=== PATIENT | female | born 1950 | race Caucasian/White ===

== ENCOUNTER 2016-12-22 18:07 | Inpatient (IN) | payer MEDICARE ==
[~2016-12-22] VITALS: Ht 175.3 cm; Wt 88.0 kg
[~2016-12-22 18:07] MED LIST: ALPH600C PO; ASPI81CH CHEW; GLUC500C36 PO; LEVO.125 PO; LISI40TA PO; NEUR600T PO; ONCETAB7; PAME75CA PO; POTA-245 PO; STOO100C; SUBO8MIS SL; ZOLO100T PO
[2016-12-22 18:12] VITALS: BP 182/88; PULSE 89; RESP 18; TEMP 98.4; O2SAT 96
--- NOTE | 2016-12-22 18:16 | PD ---
Physical Exam Time Seen by Provider: 18:15 Narrative 65 y/o female here with L foor redness for 2 weeks. Seen by pocket and pulley machine operator Dr. Huff today, sent here w/ dx of abscess/cellulitis to be admitted w/ consult to Dr. Catherine. Vital signs reviewed. Seen at triage desk. Awaiting bed placement. Data Data Last Documented VS Vital Signs Date Time Temp Pulse Resp B/P Pulse Ox O2 Delivery O2 Flow Rate FiO2 12/22/16 18:12 98.4 89 18 182/88 96 [facility] Medical Record Reviewed: Yes Supervised Visit with LORIN: No Jamil Acosta Dec 22, 2016 18:16
[2016-12-22] MEDS ORDERED: CLINDAMYCIN INJ 600 MG in SODIUM CHLORIDE 0.9% INJ 100 ML IV ONE (19:15)
[2016-12-22 19:46] LABS: AUTOMATED NEUTROPHIL # 5.4 TH/MM3 (1.8-7.7); BASOPHIL % 0.6 % (0.0-2.0); EOSINOPHIL # 0.1 TH/MM3 (0-0.4); EOSINOPHIL % 1.6 % (0.0-4.0); HEMATOCRIT 41.1 % (35.0-46.0); HEMO FLAGS DIFF FINAL; LYMPH % 16.9 % (9.0-44.0); LYMPHOCYTE # 1.3 TH/MM3 (1.0-4.8); MEAN CORPUSCULAR HEMOGLOBIN 28.6 PG (27.0-34.0); MEAN CORPUSCULAR HGB CONC 33.2 % (32.0-36.0); MONO % 8.7 % (0.0-8.0); NEUT % 72.2 % (16.0-70.0); PLATELET COUNT 260 TH/MM3 (150-450); RED BLOOD COUNT 4.78 MIL/MM3 (4.00-5.30); RED CELL DISTRIBUTION WIDTH 13.9 % (11.6-17.2); WHITE BLOOD COUNT 7.5 TH/MM3 (4.0-11.0)
--- NOTE | 2016-12-22 19:48 | RADRPT ---
EXAM DATE/TIME: 12/22/2016 19:28 [place] COMPARISON: No previous studies available for comparison. INDICATIONS : Large wound on sole of foot. MEDICAL HISTORY : Chronic neuropathy. Charcot foot. SURGICAL HISTORY : Bunionectomy. Hammertoe surgery. Fracture repair, first and second digits. ENCOUNTER: Initial ACUITY: 2 weeks PAIN SCORE: 0/10 LOCATION: Left foot. FINDINGS: AP, lateral and oblique views of the left foot were obtained and demonstrate postoperative changes in volving the second digit. The patient is status post fusion of the proximal and middle phalanges. The re are postoperative changes involving the second metatarsal head with widening of the joint space. O steoarthritic change is present greatest involving the metatarsal tarsal joints and intertarsal joint s with sclerosis and joint space narrowing. There is deformity and apparent fragmentation in the mid foot region. There is diffuse soft tissue prominence. CONCLUSION: 1. Degenerative change, deformity and apparent fragmentation in the mid foot region which could indic ate a Charcot joint. This also could be secondary to remote trauma and degenerative change. 2. Surgical changes. 3. Diffuse soft tissue prominence. Abdirashid Jimenez MD on December 22, 2016 at 19:43 Board Certified Radiologist. This report was verified electronically.
[2016-12-22 19:51] VITALS: BP 158/75; PULSE 62; RESP 20; TEMP 98.2; O2SAT 95
[2016-12-22 19:58] LABS: APTT (PATIENT) 28.9 SEC (24.3-30.1); PROTHROMBIN TIME - PATIENT 10.5 SEC (9.8-11.6)
[2016-12-22 19:59] LABS: BICARBONATE 25.6 MEQ/L (21.0-32.0); MAGNESIUM 1.9 MG/DL (1.5-2.5)
[2016-12-22] MEDS ORDERED: PIPERACIL-TAZO 3.375 GM PREMIX 50 ML IV ONE (20:00)
--- NOTE | 2016-12-22 20:07 | HHI.HP ---
[facility] Idris Finn MD Admission Diagnosis Left foot cellulitis Diagnoses: Chief Complaint: left foot wound/infection Travel History International Travel<30 Days: No Contact w/Intl Traveler <30 Da: No Traveled to Known Affected Are: No History of Present Illness Written by Nikki Cho, acting as scribe for Dr. Conde on 12/22/16 at 20: 07. Mrs. Babcock is reporting that last night, she noted a wound on middle of plantar aspect of right foot - it is not painful as she has idiopathic neuropathy - she saw her tools developer today and is s/p I&D of wound - sent to ED by Dr. Huff, tools developer. She says she hasn't been checking her feet over the past few weeks since she got a new dog and has been too busy. She does not recall any injury or trauma to the area. Denies fever, chills, n/v/d, difficulty breathing, cough, or chest pain/ discomfort. The patient has a history of right BKA due to osteomyelitis. Review of Systems Except as stated in HPI: all other systems reviewed are Neg Past Family Social History Past Medical History Hypothyroid x 38 years Hypertension Neuropathy - diopathisc Past Surgical History cholecystectomy left foot - bunionectomy, hammer toe repair L4-5 laminectomy left shoulder repair Right BKA - 3 years ago 2013 due to osteomyelitis . Reported Medications Reported Meds & Active Scripts Active Reported Glucosamine & Chondroitin Cap (Glucosa Sierra 2Kcl/Chondroitin Sierra) 1 Each Capsule 600 Tab PO BID Once Daily (Multivitamin) 1 Each Tablet Stool Softener (Docusate Sodium) 100 Mg Cap Alpha Lipoic Acid 600 Mg Cap 600 Mg PO BID Aspirin 81 Mg Chew 81 Mg CHEW DAILY Klor-Con M20 (Potassium Chloride Microencaps) 20 Meq Tab 20 Meq PO DAILY Zoloft (Sertraline HCl) 100 Mg Tab 100 Mg PO DAILY Lisinopril 40 Mg Tab 40 Mg PO DAILY Synthroid (Levothyroxine Sodium) 125 Mcg Tab 125 Mcg PO DAILY Suboxone Sublingual Film (Buprenorphine-Naloxone Sublingual Film) 8-2 Mg Film 1 Film SL Unique ID number required: Pamelor (Nortriptyline HCl) 75 Mg Cap 75 Mg PO HS Neurontin (Gabapentin) 600 Mg Tab 600 Mg PO QID Allergies: Coded Allergies: Cephalosporins (Verified Allergy, Severe, Rash, 12/22/16) Vancomycin (Verified Allergy, Severe, Rash, 12/22/16) Active Ordered Medications Current Medications Clindamycin Phosphate 600 mg/ Sodium Chloride 104 ml @ 208 mls/hr ONCE ONCE IV ; Start 12/22/16 at 19:15; Stop 12/22/16 at 19:58; Status DC Piperacillin Sod/ Tazobactam Sod (Zosyn 3.375 Gm Premix) 50 ml @ 100 mls/hr ONCE ONCE IV ; Start 12/22/16 at 20:00; Stop 12/22/16 at 20:29 . Family History denies any significant family history . Social History Tobacco: denies Alcohol: denies Illicit Drugs: denies . Physical Exam Vital Signs Vital Signs Date Time Temp Pulse Resp B/P Pulse Ox O2 Delivery O2 Flow Rate FiO2 12/22/16 19:46 18 12/22/16 18:12 98.4 89 18 182/88 96 Physical Exam GENERAL: This is a well-nourished, well-developed patient, in no apparent distress. SKIN: No rashes, ecchymoses or lesions. Cool and dry. Left LE edematous - darkly discolored - also with red discoloration from mid bloom/calf to ankle - dressing to middle foot with bloody drainage noted HEAD: Atraumatic. Normocephalic. EYES: No scleral icterus. No injection or drainage. ENT: Nose without bleeding, purulent drainage. NECK: Trachea midline. No JVD or lymphadenopathy. CARDIOVASCULAR: Regular rate and rhythm without gallops or rubs. Soft systolic heart murmur 2/6 second right IC space RESPIRATORY: Clear to auscultation. Breath sounds equal bilaterally. No wheezes , rales, or rhonchi. GASTROINTESTINAL: Abdomen obese, soft, non-tender, nondistended. No guarding. MUSCULOSKELETAL: Extremities without clubbing, cyanosis, or edema. No calf tenderness. Left LE edematous - darkly discolored - also with red discoloration from mid bloom/calf to ankle. right BKA. NEUROLOGICAL: Awake and alert. Motor and sensory grossly within normal limits. Normal speech. Laboratory Laboratory Tests Test 12/22/16 19:05 White Blood Count 7.5 Red Blood Count 4.78 Hemoglobin 13.7 Hematocrit 41.1 Mean Corpuscular Volume 86.0 Mean Corpuscular Hemoglobin 28.6 Mean Corpuscular Hemoglobin 33.2 Concent Red Cell Distribution Width 13.9 Platelet Count 260 Mean Platelet Volume 6.2 Neutrophils (%) (Auto) 72.2 Lymphocytes (%) (Auto) 16.9 Monocytes (%) (Auto) 8.7 Eosinophils (%) (Auto) 1.6 Basophils (%) (Auto) 0.6 Neutrophils # (Auto) 5.4 Lymphocytes # (Auto) 1.3 Monocytes # (Auto) 0.7 Eosinophils # (Auto) 0.1 Basophils # (Auto) 0.0 CBC Comment DIFF FINAL Differential Comment Prothrombin Time 10.5 Prothromb Time International 1.0 Ratio Activated Partial 28.9 Thromboplast Time Sodium Level 130 Potassium Level 4.0 Chloride Level 96 Carbon Dioxide Level 25.6 Anion Gap 8 Blood Urea Nitrogen 17 Creatinine 0.95 Estimat Glomerular Filtration 59 Rate Random Glucose 167 Calcium Level 8.6 Magnesium Level 1.9 C-Reactive Protein 1.10 Date/Time Procedure Status Source Growth 12/22/16 19:15 Aerobic Blood Culture Received Blood Peripheral Pending 12/22/16 19:15 Anaerobic Blood Culture Received Blood Peripheral Pending Result Diagram: 12/22/16 1905 12/22/16 1905 Imaging Last Impressions Foot X-Ray 12/22/16 0000 Signed Impressions: Service Date/Time: Thursday, December 22, 2016 19:28 - CONCLUSION: 1. Degenerative change, deformity and apparent fragmentation in the mid foot region which could indicate a Charcot joint. This also could be secondary to remote trauma and degenerative change. 2. Surgical changes. 3. Diffuse soft tissue prominence. Abdirashid Jimenez MD . Assessment and Plan Assessment and Plan Mrs. Babcock is a 65 y/o female with idiopathic peripheral neuropathy and right BKA who is here for treatment of left foot cellulitis: Left foot cellulitis - referred to ER by outpatient tools developer - C-reactive protein elevated at 1.10 - ID consultation - left foot MRI - r/o osteomyelitis - antibiotics: Zosyn IV 4.5 gram q8h - linezolid/Zyvox 600 mg q12h IV Hyperglycemia - check HgA1C - suspect diabetes - Accu-Cheks before meals and at bedtime with low-dose NovoLog sliding scale coverage - Hypoglycemia protocol - Monitor trends in blood glucose levels and adjust treatments as needed Hyponatremia - Initial sodium 130 - Normal saline at 100 cc per hour - Recheck BMP in a.m. and follow results - Replace sodium as necessary Hypertension, poorly controlled - Clonidine 0.1 mg by mouth every 6 hours when necessary systolic blood pressure greater than 160 - continue home antihypertensive medications - Follow trends in blood pressure and adjust treatments accordingly Depression, controlled - Continue home sertraline and Pamelor Idiopathic neuropathy - Continue home gabapentin Hypothyroidism - Well-controlled for 30 years - continue home Synthroid DVT prophylaxis - Heparin 5000 units subcutaneous every 8 hours This note was transcribed by gladis Cho. I, Dr. Conner Smith personally performed the history, physical exam, and medical decision making; and confirmed the accuracy of the information in the transcribed note. Authenticated by Dr. Conner Smith on 12/22/16 at 22:30. Discussed Condition With ER physician, patient, patient's , and RN Physician Certification 2 Midnight Certification Type: Admission for Inpatient Services Order for Inpatient Services The services are ordered in accordance with Medicare regulations or non- Medicare payer requirements, as applicable. In the case of services not specified as inpatient-only, they are appropriately provided as inpatient services in accordance with the 2-midnight benchmark. Estimated LOS (days): 3 days is the estimated time the patient will need to remain in the hospital, assuming treatment plan goals are met and no additional complications. Post-Hospital Plan: Home Nikki Cho Dec 22, 2016 20:07 Conner Moe MD Dec 22, 2016 22:30
--- NOTE | 2016-12-22 20:21 | PD ---
HPI Chief Complaint: Edema Time Seen by Provider: 20:12 Travel History International Travel<30 days: No Contact w/Intl Traveler<30days: No Traveled to known affect area: No History of Present Illness HPI 65 yo female here for evaluation of possible infection to the right lower leg. Patient was seen by Dr. choi that the executive associate today for evaluation of this and was sent here for admission for IV antibiotics and consultation to Dr. Bhavesh Pimentel and likely surgery. Patient has a history of significant infection to her right leg that caused her to lost her leg. Patient has no history of diabetes or immunosuppression. She does have multiple allergies to antibiotics. She denies any chest pain or shortness of breath. No fevers chills or sweats. No pain. Per patient is all started about a week ago but she did not notice the wound on the plantar aspect of her foot until 3 days ago. She denies any fevers chills or sweats. Other medical issues. She has chronic neuropathy to the legs of unclear etiology. PFSH Past Medical History Hx Anticoagulant Therapy: Yes (ASA) Anemia: Yes Cardiovascular Problems: Yes (HTN) High Cholesterol: Yes Diminished Hearing: No Hypertension: Yes Thyroid Disease: Yes Past Surgical History Cholecystectomy: Yes Tonsillectomy: Yes Other Surgery: Yes (right below the knee amputation) Social History Alcohol Use: No Tobacco Use: No Substance Use: No Allergies-Medications (Allergen,Severity, Reaction): Coded Allergies: Cephalosporins (Verified Allergy, Severe, Rash, 12/22/16) Vancomycin (Verified Allergy, Severe, Rash, 12/22/16) Reported Meds & Prescriptions Reported Meds & Active Scripts Active Reported Glucosamine & Chondroitin Cap (Glucosa Sierra 2Kcl/Chondroitin Sierra) 1 Each Capsule 600 Tab PO BID Once Daily (Multivitamin) 1 Each Tablet Stool Softener (Docusate Sodium) 100 Mg Cap Alpha Lipoic Acid 600 Mg Cap 600 Mg PO BID Aspirin 81 Mg Chew 81 Mg CHEW DAILY Klor-Con M20 (Potassium Chloride Microencaps) 20 Meq Tab 20 Meq PO DAILY Zoloft (Sertraline HCl) 100 Mg Tab 100 Mg PO DAILY Lisinopril 40 Mg Tab 40 Mg PO DAILY Synthroid (Levothyroxine Sodium) 125 Mcg Tab 125 Mcg PO DAILY Suboxone Sublingual Film (Buprenorphine-Naloxone Sublingual Film) 8-2 Mg Film 1 Film SL Unique ID number required: Pamelor (Nortriptyline HCl) 75 Mg Cap 75 Mg PO HS Neurontin (Gabapentin) 600 Mg Tab 600 Mg PO QID Review of Systems Except as stated in HPI: all other systems reviewed are Neg Physical Exam Narrative GENERAL: SKIN: Warm and dry. HEAD: Atraumatic. Normocephalic. EYES: Pupils equal and round. No scleral icterus. No injection or drainage. ENT: No nasal bleeding or discharge. Mucous membranes pink and moist. NECK: Trachea midline. No JVD. CARDIOVASCULAR: Regular rate and rhythm. RESPIRATORY: No accessory muscle use. Clear to auscultation. Breath sounds equal bilaterally. GASTROINTESTINAL: Abdomen soft, non-tender, nondistended. Hepatic and splenic margins not palpable. MUSCULOSKELETAL: Extremities without clubbing, cyanosis, or edema. No obvious deformities. Full ROM of the left lower leg. has below the right knee amputation. has an area of erythema and open area with drainage on the plantar aspect. 2+ pitting edema. erythema on the lower leg noted. warm to touch. NEUROLOGICAL: Awake and alert. No obvious cranial nerve deficits. Motor grossly within normal limits. Five out of 5 muscle strength in the arms and legs. Normal speech. PSYCHIATRIC: Appropriate mood and affect; insight and judgment normal. Data Data Last Documented VS Vital Signs Date Time Temp Pulse Resp B/P Pulse Ox O2 Delivery O2 Flow Rate FiO2 12/22/16 19:46 18 12/22/16 18:12 98.4 89 182/88 96 Orders Complete Blood Count With Diff (12/22/16 19:03) Basic Metabolic Panel (Bmp) (12/22/16 19:03) Prothrombin Time / Inr (Pt) (12/22/16 19:03) Act Partial Throm Time (Ptt) (12/22/16 19:03) Blood Culture (12/22/16 19:03) C-Reactive Protein (Crp) (12/22/16 19:03) Magnesium (Mg) (12/22/16 19:03) Iv Access Insert/Monitor (12/22/16 19:03) Clindamycin Inj (Cleocin Inj) (12/22/16 19:15) Foot, Complete (Bni3vxw) (12/22/16 ) Piperacil-Tazo 3.375 Gm Premix (Zosyn 3. (12/22/16 20:00) Admit Order (Ed Use Only) (12/22/16 19:58) Consult Podiatry (12/22/16 ) Labs Laboratory Tests Test 12/22/16 19:05 White Blood Count 7.5 TH/MM3 Red Blood Count 4.78 MIL/MM3 Hemoglobin 13.7 GM/DL Hematocrit 41.1 % Mean Corpuscular Volume 86.0 FL Mean Corpuscular Hemoglobin 28.6 PG Mean Corpuscular Hemoglobin 33.2 % Concent Red Cell Distribution Width 13.9 % Platelet Count 260 TH/MM3 Mean Platelet Volume 6.2 FL Neutrophils (%) (Auto) 72.2 % Lymphocytes (%) (Auto) 16.9 % Monocytes (%) (Auto) 8.7 % Eosinophils (%) (Auto) 1.6 % Basophils (%) (Auto) 0.6 % Neutrophils # (Auto) 5.4 TH/MM3 Lymphocytes # (Auto) 1.3 TH/MM3 Monocytes # (Auto) 0.7 TH/MM3 Eosinophils # (Auto) 0.1 TH/MM3 Basophils # (Auto) 0.0 TH/MM3 CBC Comment DIFF FINAL Differential Comment Prothrombin Time 10.5 SEC Prothromb Time International 1.0 RATIO Ratio Activated Partial 28.9 SEC Thromboplast Time Sodium Level 130 MEQ/L Potassium Level 4.0 MEQ/L Chloride Level 96 MEQ/L Carbon Dioxide Level 25.6 MEQ/L Anion Gap 8 MEQ/L Blood Urea Nitrogen 17 MG/DL Creatinine 0.95 MG/DL Estimat Glomerular Filtration 59 ML/MIN Rate Random Glucose 167 MG/DL Calcium Level 8.6 MG/DL Magnesium Level 1.9 MG/DL C-Reactive Protein 1.10 MG/DL MDM Medical Decision Making Medical Screen Exam Complete: Yes Emergency Medical Condition: Yes Medical Record Reviewed: Yes Interpretation(s) CBC & BMP Diagram 12/22/16 19:05 CRP elevated Last Impressions Foot X-Ray 12/22/16 0000 Signed Impressions: Service Date/Time: Thursday, December 22, 2016 19:28 - CONCLUSION: 1. Degenerative change, deformity and apparent fragmentation in the mid foot region which could indicate a Charcot joint. This also could be secondary to remote trauma and degenerative change. 2. Surgical changes. 3. Diffuse soft tissue prominence. Abdirashid Jimenez MD Differential Diagnosis Foot infection versus cellulitis versus abscess versus osteomyelitis Narrative Course 65-year-old female that presents to the ED for evaluation of left foot infection. Patient was properly examined and was found to have signs and symptoms consistent with infection. Patient already seen by executive associate who wanted her admitted. Labs were ordered. X-ray was ordered. Patient was turned IV Zosyn which she states she can take. She states that she is also allergic to clindamycin and cannot take it because it upsets her stomach too bad. Patient agrees with plan. Case discussed with Dr. Conde who agrees to admission. Consult was placed to Dr. Tapia. Diagnosis Primary Impression: Foot infection Additional Impression: Foot abscess, left Admitting Information Admitting Physician Requests: Admit Schuyler Sloan Dec 22, 2016 20:21
[2016-12-22] MEDS: INSULIN ASPART SUPPLEMENTAL SCALE SQ SCH (21:00)
[2016-12-22] MEDS ORDERED: LISINOPRIL 20 MG TAB PO SCH (21:00)
[2016-12-22] MEDS: DOCUSATE SODIUM 50 MG/SENNA 8.6 MG TAB PO SCH (21:00)
[2016-12-22] MEDS ORDERED: SENNOSIDES 8.6 MG TAB PO PRN (21:00)
[2016-12-22] MEDS ORDERED: DEXTROSE 50% IN WATER 50 ML VIAL(D50) IV PRN (21:00)
[2016-12-22] MEDS ORDERED: LACTULOSE SYRUP 20 GM/30 ML CUP PO PRN (21:00)
[2016-12-22] MEDS ORDERED: SODIUM CHLORIDE 0.9% FLUSH 10 ML FLUSH IV FLUSH PRN (21:00)
[2016-12-22] MEDS ORDERED: BISACODYL 10 MG SUPP RECTAL PRN (21:00)
[2016-12-22] MEDS ORDERED: ONDANSETRON HCL 4 MG/2 ML VIAL IVP PRN (21:00)
[2016-12-22] MEDS: SODIUM CHLORIDE 0.9% FLUSH 10 ML FLUSH IV FLUSH SCH (21:00)
[2016-12-22] MEDS ORDERED: ALPHA LIPOIC ACID 600 MG PO SCH (21:00)
[2016-12-22] MEDS ORDERED: PIPERACIL-TAZO 4.5 GM PREMIX 100 ML IV SCH (21:00)
[2016-12-22] MEDS ORDERED: MAGNESIUM HYDROXIDE SUSP 30 ML CUP PO PRN (21:00)
[2016-12-22] MEDS ORDERED: ACETAMINOPHEN 325 MG TAB PO PRN (21:00)
[2016-12-22] MEDS ORDERED: GLUCAGON 1 MG/ML VIAL OTHER PRN (21:00)
[2016-12-22] MEDS: GABAPENTIN 300 MG CAP PO SCH (21:49)
[2016-12-22] MEDS: SODIUM CHLOR 0.9% 1000 ML INJ 1,000 ML IV SCH (21:49)
[2016-12-22] MEDS: HEPARIN SODIUM - SQ 10,000 UNITS/ML VIAL SQ SCH (21:50)
[2016-12-22] MEDS: LINEZOLID 600 MG PREMIX 300 ML IV SCH (23:12)
[2016-12-22] MEDS: NORTRIPTYLINE HCL 25 MG CAP PO SCH (23:27)
[2016-12-23] VITALS (7 sets, daily range): BP systolic 146–154; BP diastolic 72–78; PULSE 60–73; RESP 18–20; TEMP 97.5–98.2; O2SAT 95–97
[2016-12-23 04:55] LABS: AUTOMATED NEUTROPHIL # 4.9 TH/MM3 (1.8-7.7); BASOPHIL # 0.1 TH/MM3 (0-0.2); BASOPHIL % 0.8 % (0.0-2.0); EOSINOPHIL # 0.2 TH/MM3 (0-0.4); EOSINOPHIL % 2.2 % (0.0-4.0); HEMATOCRIT 38.4 % (35.0-46.0); HEMO FLAGS DIFF FINAL; LYMPH % 19.2 % (9.0-44.0); LYMPHOCYTE # 1.4 TH/MM3 (1.0-4.8); MEAN CELL VOLUME 85.7 FL (80.0-100.0); MEAN CORPUSCULAR HEMOGLOBIN 29.2 PG (27.0-34.0); MONO % 8.9 % (0.0-8.0); NEUT % 68.9 % (16.0-70.0); PLATELET COUNT 255 TH/MM3 (150-450); RED BLOOD COUNT 4.48 MIL/MM3 (4.00-5.30); RED CELL DISTRIBUTION WIDTH 13.7 % (11.6-17.2); WHITE BLOOD COUNT 7.1 TH/MM3 (4.0-11.0)
[2016-12-23] MEDS: PIPERACIL-TAZO 4.5 GM PREMIX 100 ML IV SCH ×3 (04:59→22:07)
[2016-12-23] MEDS: LEVOTHYROXINE SODIUM 125 MCG TAB PO SCH (05:00)
[2016-12-23] MEDS: HEPARIN SODIUM - SQ 10,000 UNITS/ML VIAL SQ SCH ×3 (05:00→22:06)
[2016-12-23 05:15] LABS: ANION GAP 6 MEQ/L (5-15); AST (GOT) 20 U/L (15-37); BICARBONATE 27.8 MEQ/L (21.0-32.0); BLOOD UREA NITROGEN 14 MG/DL (7-18); CHLORIDE 98 MEQ/L (98-107); GLOMERULAR FILTRATION RATE 67 ML/MIN (>89); POTASSIUM 4.1 MEQ/L (3.5-5.1); SODIUM (NA) 132 MEQ/L (136-145)
[2016-12-23 05:19] LABS: ALKALINE PHOSPHATASE 108 U/L (45-117); ALT (GPT) 24 U/L (10-53); TOTAL BILIRUBIN ADULT 0.3 MG/DL (0.2-1.0)
[2016-12-23] MEDS: INSULIN ASPART SUPPLEMENTAL SCALE SQ SCH ×4 (06:42→21:00)
[2016-12-23] MEDS: SODIUM CHLOR 0.9% 1000 ML INJ 1,000 ML IV SCH ×3 (06:46→22:07)
[2016-12-23] MEDS: SODIUM CHLORIDE 0.9% FLUSH 10 ML FLUSH IV FLUSH SCH ×2 (09:00→21:00)
[2016-12-23] MEDS: LISINOPRIL 20 MG TAB PO SCH (09:58)
[2016-12-23] MEDS: SERTRALINE HCL 100 MG TAB PO SCH (09:58)
[2016-12-23] MEDS: DOCUSATE SODIUM 50 MG/SENNA 8.6 MG TAB PO SCH ×2 (09:58→22:06)
[2016-12-23] MEDS: GABAPENTIN 300 MG CAP PO SCH ×4 (09:58→22:05)
[2016-12-23] MEDS: LINEZOLID 600 MG PREMIX 300 ML IV SCH ×2 (09:59→22:07)
--- NOTE | 2016-12-23 12:36 | MB ---
cc: KHALIDA GRANT DPM DATE OF CONSULTATION: 12/23/2016. REASON FOR CONSULTATION: Left foot Charcot's versus abscess. HISTORY OF PRESENT ILLNESS: This is a 66-year-old female who was seen by Dr. Huff in the [facility] yesterday. Incision and drainage took place. There was noted to be copious amounts of purulent material. A culture was taken in his office. The patient has a history of a right [id number] amputation and the left foot had clinical signs of worsening Charcot's versus osteomyelitis with abscess. The patient was sent to the hospital for further workup and IV antibiotics. Currently I am seeing the patient bedside. She has minimal pain. She is very nervous as she is already a right [id number] amputee. She is very worried the same thing will happen on the left. Upon questioning the patient, it appears that she has idiopathic neuropathy. Interestingly enough, her father had the same type condition but his was more due to heavy metal poisoning. PAST MEDICAL HISTORY: 1. Hypothyroidism. 2. Hypertension. 3. Idiopathic neuropathy. PAST SURGICAL HISTORY: 1. Cholecystectomy. 2. Left foot bunion surgery. 3. Hammertoe repair. 4. Laminectomy L4 and L5. 5. A left shoulder repair. 6. Right BKA three years ago secondary to osteomyelitis. She had a midfoot fusion that became infected. OUTPATIENT MEDICATIONS: reviewed and verified. INPATIENT MEDICATIONS: She is receivin. Zosyn.. 2. Clindamycin. 3. Please see complete medication list in chart. ALLERGIES: 1. CEPHALOSPORINS. 2. VANCOMYCIN. PHYSICAL EXAMINATION: VITAL SIGNS: Temperature 97.5, pulse rate 61, respiratory rate 18, blood pressure 149/76. She is satting 97% on room air. GENERAL: This is an alert and oriented female seen bedside. She is nervous and slightly crying but in no acute distress. RIGHT LOWER EXTREMITY: The right lower extremity appears to have a below-knee amputation and prosthesis in place. LEFT LOWER EXTREMITY: The left lower extremity is examined. There is noted to be a rocker bottom foot. Upon examining the plantar aspect of the foot, there is a very small partial thickness ulcer that does not appear to probe to bone beneath the plantar aspect of the cuboid area. There is evidence of a post incision and drainage partial thickness blister slough that measures approximately 4 x 5 cm but the extra ulcer of concern is only 4 x 3 mm with minimal depth. Upon pressure to the area, I cannot express any pus. The foot appears supple. Upon range of motion of the hindfoot and ankle, there is limited range of motion. The ankle has good range of motion of the subtalar joint. The mid-tarsal joint appeared to be fused in a rocker bottom type position. Mild hammertoe contractures noted. Pedal pulses are fully palpable. Sensation decreased below the patient's distal ankle. There appears to be mild chronic skin changes of the mid leg. The calf is nontender and nondistended. LABORATORY FINDINGS: White blood cells 7.1, hemoglobin/hematocrit 13 and 38, platelet count is 255,000. Sodium is 132, potassium 4.1, chloride is 98, CO2 is 27.8, BUN is 14, creatinine 0.84, random glucose is 127. Hemoglobin A1c is pending. C-reactive protein is 1.10. IMAGING STUDIES: Imaging findings: Diffuse narrowing and degenerative joint disease noted which correlates with Charcot's of the hindfoot, postsurgical changes of the first MPJ. There appears to be an implant within the second digit, evidence of a hammertoe type surgery. There is no distinct area of osteolysis; however, the x-rays are quite impressive and very hard to rule out emphatically osteomyelitis. MICROBIAL FINDINGS: Blood culture negative. I will add a superficial culture for bacteria; however, a deeper culture was taken by Dr. Huff in the office, and we do not have those results at this time. We may be able to follow those results if the patient continues to need antimicrobial designation or bacteria culture and sensitivity. ASSESSMENT: Left foot Charcot's with cellulitis partial thickness ulcer, rule out osteomyelitis. I reviewed with the patient the need to rule out bone infection at this point. A white blood cell bone SPECT CT will be ordered and will follow that accordingly. The patient is only transfer weight bear at this time. The Charcot's appears to be stable; however, the rocker bottom foot likely needs to be addressed outpatient with a patellar tendon brace to offload the midfoot and hindfoot. Follow up within one to two days as the bone scan results. TETO Woodruff/FRANCISCA /11:25 AM /12:21 PM
--- NOTE | 2016-12-23 15:31 | PD.ID.CON ---
History of Present Illness Service ID Consult Requested By Reason for Consult Evaluation and Mment of possible osteomyelitis of foot. 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 Patient reports that night prior to admission she noted a wound on middle of plantar aspect of right foot. It was not painful secondary to her idiopathic neuropathy. She saw her portfolio administrator and underwent a I&D of wound. Patient was sent to ED by Dr. Huff, portfolio administrator. She says she hasn't been checking her feet over the past few weeks since she got a new dog and has been too busy. She does not recall any injury or trauma to the area. Denies fever, chills, n/v/d, difficulty breathing, cough, or chest pain/ discomfort. The patient has a history of right BKA due to osteomyelitis. Patient has never been on IV antibiotics using a PICC line. Patient reports being on Bactrim oral in past. ID consulted for evaluation and Mment of possible osteomyelitis of left foot. Review of Systems Constitutional: DENIES: Diaphoretic episodes, Fatigue, Fever, Weight gain, Weight loss, Chills, Dizziness, Change in appetite, Night Sweats Endocrine: DENIES: Abnorml menstrual pattern, Heat/cold intolerance, Polydipsia , Polyuria, Polyphagia Eyes: DENIES: Blurred vision, Diplopia, Eye inflammation, Eye pain, Vision loss , Photosensitivity, Double Vision Ears, nose, mouth, throat: DENIES: Tinnitus, Hearing loss, Vertigo, Nasal discharge, Oral lesions, Throat pain, Hoarseness, Ear Pain, Running Nose, Epistaxis, Sinus Pain, Toothache, Odynophagia Respiratory: DENIES: Apneas, Cough, Snoring, Wheezing, Hemoptysis, Sputum production, Shortness of breath Cardiovascular: DENIES: Chest pain, Palpitations, Syncope, Dyspnea on Exertion , PND, Lower Extremity Edema, Orthopnea, Claudication Gastrointestinal: DENIES: Abdominal pain, Black stools, Bloody stools, Constipation, Diarrhea, Nausea, Vomiting, Difficulty Swallowing, Anorexia Genitourinary: DENIES: Abnormal vaginal bleeding, Dysmenorrhea, Dyspareunia, Sexual dysfunction, Urinary frequency, Urinary incontinence, Urgency, Hematuria , Dysuria, Nocturia, Vaginal discharge Musculoskeletal: DENIES: Joint pain, Muscle aches, Stiffness, Joint Swelling, Back pain, Neck pain Integumentary: DENIES: Abnormal pigmentation, Pruritus, Rash, Nail changes, Breast masses, Breast skin changes, Nipple discharge Hematologic/lymphatic: DENIES: Bruising, Lymphadenopathy Immunologic/allergic: DENIES: Eczema, Urticaria Neurologic: DENIES: Abnormal gait, Headache, Localized weakness, Paresthesias, Seizures, Speech Problems, Tremor, Poor Balance Psychiatric: DENIES: Anxiety, Confusion, Mood changes, Depression, Hallucinations, Agitation, Suicidal Ideation, Homicidal Ideation, Delusions Except as stated in HPI: all other systems reviewed are Neg Past Family Social History Allergies: Coded Allergies: Cephalosporins (Verified Allergy, Severe, Rash, 12/22/16) Vancomycin (Verified Allergy, Severe, Rash, 12/22/16) Past Medical History Hypothyroid x 38 years Hypertension Neuropathy - idiopathic Past Surgical History cholecystectomy left foot - bunionectomy, hammer toe repair L4-5 laminectomy left shoulder repair Right BKA - 3 years ago 2013 due to osteomyelitis Reported Medications Reported Meds & Active Scripts Active Reported Glucosamine & Chondroitin Cap (Glucosa Sierra 2Kcl/Chondroitin Sierra) 1 Each Capsule 600 Tab PO BID Once Daily (Multivitamin) 1 Each Tablet Stool Softener (Docusate Sodium) 100 Mg Cap Alpha Lipoic Acid 600 Mg Cap 600 Mg PO BID Aspirin 81 Mg Chew 81 Mg CHEW DAILY Klor-Con M20 (Potassium Chloride Microencaps) 20 Meq Tab 20 Meq PO DAILY Zoloft (Sertraline HCl) 100 Mg Tab 100 Mg PO DAILY Lisinopril 40 Mg Tab 40 Mg PO DAILY Synthroid (Levothyroxine Sodium) 125 Mcg Tab 125 Mcg PO DAILY Suboxone Sublingual Film (Buprenorphine-Naloxone Sublingual Film) 8-2 Mg Film 1 Film SL Unique ID number required: Pamelor (Nortriptyline HCl) 75 Mg Cap 75 Mg PO HS Neurontin (Gabapentin) 600 Mg Tab 600 Mg PO QID Active Ordered Medications Current Medications Medications (Trade) Dose Ordered Sig/Ijeoma Route Start Time Stop Time Status Last Admin (NS 1000 ml Inj) 1,000 ml @ 100 mls/hr Q10H IV 12/22/16 20:46 12/23/16 16:46 (NS Flush) 2 ml UNSCH PRN IV FLUSH 6/30/17 21:00 (NS Flush) 2 ml BID IV FLUSH 12/22/16 21:00 12/22/16 21:00 (Tylenol) 650 mg Q4H PRN PO 12/22/16 21:00 (Zofran Inj) 4 mg Q6H PRN IVP 12/22/16 21:00 (Heparin Inj) 5,000 units Q8H SQ 12/22/16 21:00 12/23/16 13:22 (Aury-Colace) 1 tab BID PO 12/22/16 21:00 12/23/16 09:58 (Milk Of Magnesia Liq) 30 ml Q12H PRN PO 12/22/16 21:00 (Senokot) 17.2 mg Q12H PRN PO 12/22/16 21:00 (Dulcolax Supp) 10 mg DAILY PRN RECTAL 12/22/16 21:00 Lactulose 30 ml 30 ml DAILY PRN PO 12/22/16 21:00 (Zyvox 600 Mg Premix) 300 ml @ 300 mls/hr Q12H IV 12/22/16 22:00 12/23/16 09:59 (Catapres) 0.1 mg Q6H PRN PO 12/22/16 21:00 (D50w (Vial) Inj) 50 ml UNSCH PRN IV 12/22/16 21:00 (Glucagon Inj) 1 mg UNSCH PRN OTHER 12/22/16 21:00 (Neurontin) 600 mg QID PO 12/22/16 21:00 12/23/16 17:47 (Synthroid) 125 mcg DAILY@0600 PO 12/23/16 06:00 12/23/16 05:00 (Zoloft) 100 mg DAILY PO 12/23/16 09:00 12/23/16 09:58 (Prinivil) 40 mg DAILY PO 12/23/16 09:00 12/23/16 09:58 Nortriptyline HCl 75 mg 75 mg HS PO 12/22/16 22:00 12/22/16 23:27 (Zosyn 4.5 Gm Premix) 100 ml @ 200 mls/hr Q8H IV 12/23/16 04:00 12/23/16 13:22 Family History reviewed. Social History Has a dog. Daughter in room. Another Daughter is a nurse in another state. Physical Exam Vital Signs Vital Signs Date Time Temp Pulse Resp B/P Pulse Ox O2 Delivery O2 Flow Rate FiO2 12/23/16 12:00 98.1 73 18 151/77 97 12/23/16 08:00 97.5 61 18 149/76 97 12/23/16 08:00 60 12/23/16 04:00 97.5 63 20 146/75 95 12/23/16 00:00 98.2 62 20 150/78 96 12/22/16 19:51 98.2 62 20 158/75 95 12/22/16 19:46 18 12/22/16 18:12 98.4 89 18 182/88 96 Physical Exam GENERAL: This is a well-nourished, well-developed patient, in no apparent distress. SKIN: No rashes, ecchymoses or lesions. Cool and dry. HEAD: Atraumatic. Normocephalic. No temporal or scalp tenderness. EYES: Pupils equal round and reactive. Extraocular motions intact. No scleral icterus. No injection or drainage. ENT: Nose without bleeding, purulent drainage or septal hematoma. Throat without erythema, tonsillar hypertrophy or exudate. Uvula midline. Airway patent. NECK: Trachea midline. Supple, nontender, no meningeal signs. CARDIOVASCULAR: RRR. RESPIRATORY: Clear to auscultation. Breath sounds equal bilaterally. No wheezes , rales, or rhonchi. GASTROINTESTINAL: Abdomen soft, non-tender, nondistended. No hepato-splenomegaly , or palpable masses. No guarding. MUSCULOSKELETAL: Left foot in post op dressing. Right leg amputation site with prosthesis. NEUROLOGICAL: Awake and alert. Grossly non focal Psych: cooperative IV line sites with no e.o infection. Laboratory Laboratory Tests Test 12/22/16 12/23/16 19:05 04:00 White Blood Count 7.5 7.1 Red Blood Count 4.78 4.48 Hemoglobin 13.7 13.1 Hematocrit 41.1 38.4 Mean Corpuscular Volume 86.0 85.7 Mean Corpuscular Hemoglobin 28.6 29.2 Mean Corpuscular Hemoglobin 33.2 34.0 Concent Red Cell Distribution Width 13.9 13.7 Platelet Count 260 255 Mean Platelet Volume 6.2 6.5 Neutrophils (%) (Auto) 72.2 68.9 Lymphocytes (%) (Auto) 16.9 19.2 Monocytes (%) (Auto) 8.7 8.9 Eosinophils (%) (Auto) 1.6 2.2 Basophils (%) (Auto) 0.6 0.8 Neutrophils # (Auto) 5.4 4.9 Lymphocytes # (Auto) 1.3 1.4 Monocytes # (Auto) 0.7 0.6 Eosinophils # (Auto) 0.1 0.2 Basophils # (Auto) 0.0 0.1 CBC Comment DIFF FINAL DIFF FINAL Differential Comment Prothrombin Time 10.5 Prothromb Time International 1.0 Ratio Activated Partial 28.9 Thromboplast Time Sodium Level 130 132 Potassium Level 4.0 4.1 Chloride Level 96 98 Carbon Dioxide Level 25.6 27.8 Anion Gap 8 6 Blood Urea Nitrogen 17 14 Creatinine 0.95 0.84 Estimat Glomerular Filtration 59 67 Rate Random Glucose 167 127 Calcium Level 8.6 8.3 Magnesium Level 1.9 C-Reactive Protein 1.10 Total Bilirubin 0.3 Aspartate Amino Transf 20 (AST/SGOT) Alanine Aminotransferase 24 (ALT/SGPT) Alkaline Phosphatase 108 Total Protein 6.4 Albumin 3.3 Date/Time Procedure Status Source Growth 12/22/16 19:15 Aerobic Blood Culture - Preliminary Resulted Blood Peripheral NO GROWTH IN 1 DAY 12/22/16 19:15 Anaerobic Blood Culture - Preliminary Resulted Blood Peripheral NO GROWTH IN 1 DAY Result Diagram: 12/23/16 0400 12/23/16 0400 Imaging Last Impressions Foot X-Ray 12/22/16 0000 Signed Impressions: Service Date/Time: Thursday, December 22, 2016 19:28 - CONCLUSION: 1. Degenerative change, deformity and apparent fragmentation in the mid foot region which could indicate a Charcot joint. This also could be secondary to remote trauma and degenerative change. 2. Surgical changes. 3. Diffuse soft tissue prominence. Abdirashid Jimenez MD Assessment and Plan Assessment and Plan Left foot osteomyelitis. Left foot abscess s/p I&D at office. Idiopathic Neuropathy. ? Charcot's joint. Hypothyroidism Vanco/Cephalosporin diffuse drug rash. Not sure which of these two medications. Never been on Keflex or oral cephalosporins after that episode. Recs Continue IV Zosyn for now. Continue Zyvox IV for now. Will need Dapto if Osteomyelitis on WBC scan. WBC scan ordered. Follow cultures from office. Follow clinically. Will follow patient next on Sunday when results of WBC Scan available. Tasha Skaggs MD Dec 23, 2016 15:31
--- NOTE | 2016-12-23 17:44 | HHI.PR ---
Subjective Remarks Patient resting comfortably in bed No fever or chills, she told me she does not have dm d/w , Objective Vitals Vital Signs Date Time Temp Pulse Resp B/P Pulse Ox O2 Delivery O2 Flow Rate FiO2 12/23/16 12:00 98.1 73 18 151/77 97 12/23/16 08:00 97.5 61 18 149/76 97 12/23/16 08:00 60 12/23/16 04:00 97.5 63 20 146/75 95 12/23/16 00:00 98.2 62 20 150/78 96 12/22/16 19:51 98.2 62 20 158/75 95 12/22/16 19:46 18 12/22/16 18:12 98.4 89 18 182/88 96 I/O 12/22/16 12/22/16 12/22/16 12/23/16 12/23/16 12/23/16 07:00 15:00 23:00 07:00 15:00 23:00 Intake Total 240 ml 360 ml Output Total 350 ml Balance 240 ml 10 ml Intake Oral 240 ml 360 ml Output Urine Total 350 ml # Voids 1 # Bowel Movements 0 0 Result Diagram: 12/23/16 0400 12/23/16 0400 Objective Remarks GENERAL: This is a well-nourished, well-developed patient, in no apparent distress. SKIN: No rashes, warm and dry HEAD: Atraumatic. Normocephalic. EYES: Pupils equal round and reactive. Extraocular motions intact. No scleral icterus. ENT: Nose without bleeding, or drainage, Airway patent. NECK: Trachea midline. Supple CARDIOVASCULAR: Regular rate and rhythm without murmurs, gallops, or rubs. RESPIRATORY: Fair air entry bilaterally. No wheezes, rales, or rhonchi. GASTROINTESTINAL: Abdomen soft, non-tender, nondistended. Positive bowel sounds MUSCULOSKELETAL: Left foot in gauze, right BKA NEUROLOGICAL: Awake and alert. Moves all extremity. Normal speech.no focal neurological deficit A/P Assessment and Plan Mrs. Babcock is a 65 y/o female with idiopathic peripheral neuropathy and right BKA who is here for treatment of left foot cellulitis: Left foot cellulitis - - C-reactive protein elevated at 1.10 - ID consult appreciated , d/w with podiatry - left foot MRI - r/o osteomyelitis nonconclusive - antibiotics: Zosyn IV 4.5 gram q8h - linezolid/Zyvox 600 mg q12h IV Hyperglycemia - HgA1C P , BG reading controlled - Accu-Cheks before meals and at bedtime with low-dose NovoLog sliding scale coverage - Hypoglycemia protocol - Monitor trends in blood glucose levels and adjust treatments as needed Hyponatremia - Initial sodium 130 - Normal saline at 100 cc per hour - Recheck BMP in a.m. and follow results - Replace sodium as necessary Hypertension, poorly controlled - Clonidine 0.1 mg by mouth every 6 hours when necessary systolic blood pressure greater than 160 - continue home antihypertensive medications - Follow trends in blood pressure and adjust treatments accordingly Depression, controlled - Continue home sertraline and Pamelor Idiopathic neuropathy - Continue home gabapentin Hypothyroidism - Well-controlled for 30 years - continue home Synthroid DVT prophylaxis - Heparin 5000 units subcutaneous every 8 hours Florinda Atkins MD Dec 23, 2016 17:44
[2016-12-23] MEDS: NORTRIPTYLINE HCL 25 MG CAP PO SCH (22:06)
[2016-12-24] VITALS (7 sets, daily range): BP systolic 118–167; BP diastolic 54–90; PULSE 56–82; RESP 20; TEMP 97.2–98.6; O2SAT 95–100
[2016-12-24] MEDS: PIPERACIL-TAZO 4.5 GM PREMIX 100 ML IV SCH ×3 (05:29→21:10)
[2016-12-24] MEDS: LEVOTHYROXINE SODIUM 125 MCG TAB PO SCH (05:29)
[2016-12-24] MEDS: INSULIN ASPART SUPPLEMENTAL SCALE SQ SCH ×4 (05:33→21:00)
[2016-12-24] MEDS: HEPARIN SODIUM - SQ 10,000 UNITS/ML VIAL SQ SCH ×3 (05:40→21:19)
[2016-12-24] MEDS: SODIUM CHLORIDE 0.9% FLUSH 10 ML FLUSH IV FLUSH SCH ×2 (09:00→21:10)
[2016-12-24] MEDS: DOCUSATE SODIUM 50 MG/SENNA 8.6 MG TAB PO SCH ×2 (09:00→21:00)
[2016-12-24] MEDS: SERTRALINE HCL 100 MG TAB PO SCH (09:43)
[2016-12-24] MEDS: GABAPENTIN 300 MG CAP PO SCH ×4 (09:43→21:12)
[2016-12-24] MEDS: LISINOPRIL 20 MG TAB PO SCH (09:43)
[2016-12-24] MEDS: LINEZOLID 600 MG PREMIX 300 ML IV SCH ×2 (09:45→21:09)
[2016-12-24] MEDS: SODIUM CHLOR 0.9% 1000 ML INJ 1,000 ML IV SCH ×2 (12:46→21:20)
[2016-12-24 13:22] LABS: HEMOGLOBIN A1b 1.8 %; HEMOGLOBIN LA1C 2.4 %; HEMOGLOBIN P3 4.1 %
--- NOTE | 2016-12-24 13:48 | PD.POD ---
Subjective Pain score: 0 Remarks Left foot with no new issues Past Med/Surg/Social History Social History Smoking Status: Former Smoker Objective Vital Signs Vital Signs Date Time Temp Pulse Resp B/P Pulse Ox O2 Delivery O2 Flow Rate FiO2 12/24/16 08:00 56 12/24/16 08:00 97.2 68 20 144/73 95 12/24/16 04:00 97.6 75 20 153/72 95 12/24/16 00:00 98.6 82 20 118/54 96 12/24/16 00:00 97.6 66 20 147/90 95 12/23/16 20:00 73 12/23/16 20:00 98.1 68 20 154/74 96 12/23/16 16:00 97.9 71 18 154/72 96 Coded Allergies: Cephalosporins (Verified Allergy, Severe, Rash, 12/22/16) Vancomycin (Verified Allergy, Severe, Rash, 12/22/16) Medications and IVs Administered Medications Medications (Trade) Dose Ordered Sig/Ijeoma Route PRN Reason Start Time Stop Time Status Last Admin Dose Admin Sodium Chloride (NS 1000 ml Inj) 1,000 ml @ 100 mls/hr Q10H IV 12/22/16 20:46 12/23/16 22:07 Sodium Chloride (NS Flush) 2 ml UNSCH PRN IV FLUSH FLUSH AFTER USING IV ACCESS 12/22/16 21:00 12/24/16 05:29 Sodium Chloride (NS Flush) 2 ml BID IV FLUSH 12/22/16 21:00 12/22/16 21:00 Heparin Sodium (Porcine) (Heparin Inj) 5,000 units Q8H SQ 12/22/16 21:00 12/24/16 11:48 Senna/Docusate Sodium 1 tab 1 tab BID PO 12/22/16 21:00 12/23/16 22:06 Linezolid (Zyvox 600 Mg Premix) 300 ml @ 300 mls/hr Q12H IV 12/22/16 22:00 12/24/16 09:45 Gabapentin (Neurontin) 600 mg QID PO 12/22/16 21:00 12/24/16 11:48 Levothyroxine Sodium (Synthroid) 125 mcg DAILY@0600 PO 12/23/16 06:00 12/24/16 05:29 Sertraline HCl (Zoloft) 100 mg DAILY PO 12/23/16 09:00 12/24/16 09:43 Lisinopril (Prinivil) 40 mg DAILY PO 12/23/16 09:00 12/24/16 09:43 Nortriptyline HCl 75 mg 75 mg HS PO 12/22/16 22:00 12/23/16 22:06 Piperacillin Sod/ Tazobactam Sod (Zosyn 4.5 Gm Premix) 100 ml @ 200 mls/hr Q8H IV 12/23/16 04:00 12/24/16 05:29 Other Results Laboratory Tests Test 12/22/16 12/23/16 19:05 04:00 White Blood Count 7.5 TH/MM3 7.1 TH/MM3 Red Blood Count 4.78 MIL/MM3 4.48 MIL/MM3 Hemoglobin 13.7 GM/DL 13.1 GM/DL Hematocrit 41.1 % 38.4 % Mean Corpuscular Volume 86.0 FL 85.7 FL Mean Corpuscular Hemoglobin 28.6 PG 29.2 PG Mean Corpuscular Hemoglobin 33.2 % 34.0 % Concent Red Cell Distribution Width 13.9 % 13.7 % Platelet Count 260 TH/MM3 255 TH/MM3 Mean Platelet Volume 6.2 FL 6.5 FL Neutrophils (%) (Auto) 72.2 % 68.9 % Lymphocytes (%) (Auto) 16.9 % 19.2 % Monocytes (%) (Auto) 8.7 % 8.9 % Eosinophils (%) (Auto) 1.6 % 2.2 % Basophils (%) (Auto) 0.6 % 0.8 % Neutrophils # (Auto) 5.4 TH/MM3 4.9 TH/MM3 Lymphocytes # (Auto) 1.3 TH/MM3 1.4 TH/MM3 Monocytes # (Auto) 0.7 TH/MM3 0.6 TH/MM3 Eosinophils # (Auto) 0.1 TH/MM3 0.2 TH/MM3 Basophils # (Auto) 0.0 TH/MM3 0.1 TH/MM3 CBC Comment DIFF FINAL DIFF FINAL Differential Comment Laboratory Tests Test 12/22/16 12/23/16 19:05 04:00 Sodium Level 130 MEQ/L 132 MEQ/L Potassium Level 4.0 MEQ/L 4.1 MEQ/L Chloride Level 96 MEQ/L 98 MEQ/L Carbon Dioxide Level 25.6 MEQ/L 27.8 MEQ/L Anion Gap 8 MEQ/L 6 MEQ/L Blood Urea Nitrogen 17 MG/DL 14 MG/DL Creatinine 0.95 MG/DL 0.84 MG/DL Estimat Glomerular Filtration 59 ML/MIN 67 ML/MIN Rate Random Glucose 167 MG/DL 127 MG/DL Calcium Level 8.6 MG/DL 8.3 MG/DL Magnesium Level 1.9 MG/DL C-Reactive Protein 1.10 MG/DL Hemoglobin A1c 5.9 % Total Bilirubin 0.3 MG/DL Aspartate Amino Transf 20 U/L (AST/SGOT) Alanine Aminotransferase 24 U/L (ALT/SGPT) Alkaline Phosphatase 108 U/L Total Protein 6.4 GM/DL Albumin 3.3 GM/DL Microbiology Date/Time Procedure Status Source Growth 12/22/16 19:05 Aerobic Blood Culture - Preliminary Resulted Blood Peripheral NO GROWTH IN 2 DAYS 12/22/16 19:05 Anaerobic Blood Culture - Preliminary Resulted Blood Peripheral NO GROWTH IN 2 DAYS 12/22/16 19:15 Aerobic Blood Culture - Preliminary Resulted Blood Peripheral NO GROWTH IN 2 DAYS 12/22/16 19:15 Anaerobic Blood Culture - Preliminary Resulted Blood Peripheral NO GROWTH IN 2 DAYS Physical Exam Remarks GENERAL: This is an alert and oriented female seen bedside. She is nervous and slightly crying but in no acute distress. RIGHT LOWER EXTREMITY: The right lower extremity appears to have a below-knee amputation and prosthesis in place. LEFT LOWER EXTREMITY: The left lower extremity is examined. There is noted to be a rocker bottom foot. Upon examining the plantar aspect of the foot, there is a very small partial thickness ulcer that does not appear to probe to bone beneath the plantar aspect of the cuboid area. There is evidence of a post incision and drainage partial thickness blister slough that measures approximately 4 x 5 cm but the extra ulcer of concern is only 4 x 3 mm with minimal depth. Upon pressure to the area, I cannot express any pus. The foot appears supple. Upon range of motion of the hindfoot and ankle, there is limited range of motion. The ankle has good range of motion of the subtalar joint. The mid-tarsal joint appeared to be fused in a rocker bottom type position. Mild hammertoe contractures noted. Pedal pulses are fully palpable. Sensation decreased below the patient's distal ankle. There appears to be mild chronic skin changes of the mid leg. The calf is nontender and nondistended. 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 Clinically appears to be stable, will try to get outpt Cx for tomorrow, awaiting bone scan results. Kvng Tapia DPM Dec 24, 2016 13:48
--- NOTE | 2016-12-24 17:20 | HHI.PR ---
Subjective Remarks Patient seen in her room with podiatry Dr. Tapia was at the bedside along with family Patient stated she is doing well awaiting WBC scan to verify on osteomyelitis, discussed with Dr. Tapia and with ID, will obtain last the culture from Dr. Huff office for better antibiotic guidance, continue iv antibiotic Objective Vitals Vital Signs Date Time Temp Pulse Resp B/P Pulse Ox O2 Delivery O2 Flow Rate FiO2 12/24/16 12:00 98.3 67 20 154/70 95 12/24/16 08:00 56 12/24/16 08:00 97.2 68 20 144/73 95 12/24/16 04:00 97.6 75 20 153/72 95 12/24/16 00:00 98.6 82 20 118/54 96 12/24/16 00:00 97.6 66 20 147/90 95 12/23/16 20:00 73 12/23/16 20:00 98.1 68 20 154/74 96 I/O 12/23/16 12/23/16 12/23/16 12/24/16 12/24/16 12/24/16 07:00 15:00 23:00 07:00 15:00 23:00 Intake Total 360 ml 2326 ml 480 ml 1650 ml Output Total 350 ml 600 ml 500 ml Balance 10 ml 1726 ml -20 ml 1650 ml Intake Oral 360 ml 720 ml 480 ml IV Total 1606 ml 1650 ml Output Urine Total 350 ml 600 ml 500 ml # Voids 2 # Bowel Movements 0 Result Diagram: 12/23/16 0400 12/23/16 0400 Objective Remarks GENERAL: This is a well-nourished, well-developed patient, in no apparent distress. SKIN: No rashes, warm and dry HEAD: Atraumatic. Normocephalic. EYES: Pupils equal round and reactive. Extraocular motions intact. No scleral icterus. ENT: Nose without bleeding, or drainage, Airway patent. NECK: Trachea midline. Supple CARDIOVASCULAR: Regular rate and rhythm without murmurs, gallops, or rubs. RESPIRATORY: Fair air entry bilaterally. No wheezes, rales, or rhonchi. GASTROINTESTINAL: Abdomen soft, non-tender, nondistended. Positive bowel sounds MUSCULOSKELETAL: Left foot in gauze, right BKA NEUROLOGICAL: Awake and alert. Moves all extremity. Normal speech.no focal neurological deficit A/P Assessment and Plan 12/24:awaiting WBC scan to verify on osteomyelitis, discussed with Dr. Tapia and with ID, will obtain last the culture from Dr. Huff office for better antibiotic guidance, continue iv antibiotic Mrs. Babcock is a 65 y/o female with idiopathic peripheral neuropathy and right BKA who is here for treatment of left foot cellulitis: Left foot cellulitis - - C-reactive protein elevated at 1.10 - ID consult appreciated , d/w with podiatry - left foot MRI - r/o osteomyelitis nonconclusive - antibiotics: Zosyn IV 4.5 gram q8h - linezolid/Zyvox 600 mg q12h IV Hyperglycemia - HgA1C P , BG reading controlled - Accu-Cheks before meals and at bedtime with low-dose NovoLog sliding scale coverage - Hypoglycemia protocol - Monitor trends in blood glucose levels and adjust treatments as needed Hyponatremia - Initial sodium 130 - Normal saline at 100 cc per hour - Recheck BMP in a.m. and follow results - Replace sodium as necessary Hypertension, poorly controlled - Clonidine 0.1 mg by mouth every 6 hours when necessary systolic blood pressure greater than 160 - continue home antihypertensive medications - Follow trends in blood pressure and adjust treatments accordingly Depression, controlled - Continue home sertraline and Pamelor Idiopathic neuropathy - Continue home gabapentin Hypothyroidism - Well-controlled for 30 years - continue home Synthroid DVT prophylaxis - Heparin 5000 units subcutaneous every 8 hours Florinda Atkins MD Dec 24, 2016 17:20
[2016-12-24] MEDS: NORTRIPTYLINE HCL 25 MG CAP PO SCH (21:12)
[2016-12-25] VITALS (7 sets, daily range): BP systolic 130–173; BP diastolic 54–78; PULSE 56–72; RESP 12–20; TEMP 97.5–98.2; O2SAT 93–99
[2016-12-25] MEDS: cloNIDine HCL 0.1 MG TAB PO PRN (00:46)
[2016-12-25] MEDS: PIPERACIL-TAZO 4.5 GM PREMIX 100 ML IV SCH ×2 (05:28→13:09)
[2016-12-25] MEDS: LEVOTHYROXINE SODIUM 125 MCG TAB PO SCH (05:29)
[2016-12-25] MEDS: HEPARIN SODIUM - SQ 10,000 UNITS/ML VIAL SQ SCH ×3 (05:30→21:32)
[2016-12-25] MEDS: INSULIN ASPART SUPPLEMENTAL SCALE SQ SCH ×4 (05:31→21:00)
[2016-12-25] MEDS: SODIUM CHLOR 0.9% 1000 ML INJ 1,000 ML IV SCH ×2 (08:46→18:24)
[2016-12-25] MEDS: SERTRALINE HCL 100 MG TAB PO SCH (09:00)
[2016-12-25] MEDS: SODIUM CHLORIDE 0.9% FLUSH 10 ML FLUSH IV FLUSH SCH ×2 (09:00→21:00)
[2016-12-25] MEDS: DOCUSATE SODIUM 50 MG/SENNA 8.6 MG TAB PO SCH ×2 (09:13→21:32)
[2016-12-25] MEDS: LISINOPRIL 20 MG TAB PO SCH (09:13)
[2016-12-25] MEDS: GABAPENTIN 300 MG CAP PO SCH ×4 (09:13→21:32)
--- NOTE | 2016-12-25 11:18 | RADRPT ---
EXAM DATE/TIME: 12/24/2016 12:23 [facility] COMPARISON: No previous studies available for comparison. INDICATIONS : Abcess of left foot. Wound on plantar aspect of left midfoot. DOSE: 21 mCi Tc99m Ceretec labeled white blood cells IV SPECT IMAGIN hrs, 20 hrs IMAGNG: SPECT/CT imaging with fusion was performed. RADIATION DOSE: 5.64 CTDIvol (mGy) MEDICAL HISTORY : Hypertension. Hypothyroidism. Idiopathic neuropathy. SURGICAL HISTORY : Cholecystectomy. Right BKA and lumbar laminectomy. ENCOUNTER: Initial ACUITY: 1 week PAIN SCALE: 0/10 LOCATION: Left foot. TECHNIQUE: Following the in vitro labeling of autologous white cells and reinjection, whole body scan was perfor med at the specified times. SPECT imaging was performed at the specified time in sagittal, axial and coronal planes. Attenuation correction was performed with the computed tomography and both the atten uation correction and non-attenuation corrected data sets were reviewed. FINDINGS: Focal intense uptake is seen on the dorsum of the foot, more towards the lateral side that I believe corresponds to the wound on the plantar aspect of the foot. This is confined to the subcutaneous ti ssues and does not involve bone. I do not see bony uptake. CONCLUSION: Intense focal soft tissue uptake responding to be wound on the plantar surface of the foot. Guille Terry MD FACR on December 25, 2016 at 11:14 Board Certified Radiologist. This report was verified electronically.
[2016-12-25] MEDS: LINEZOLID 600 MG PREMIX 300 ML IV SCH (13:24)
--- NOTE | 2016-12-25 15:00 | HHI.PR ---
Subjective Remarks No acute issues no fever or chills Still waiting on deep culture result from podiatry office D/W ID, WBC scan focal intense uptake in the sole Objective Vitals Vital Signs Date Time Temp Pulse Resp B/P Pulse Ox O2 Delivery O2 Flow Rate FiO2 12/25/16 12:00 97.9 68 16 173/75 97 12/25/16 08:00 97.5 69 12 153/70 96 12/25/16 04:00 97.8 56 20 133/66 99 12/25/16 00:00 98.2 60 20 165/74 93 160/54 12/24/16 20:18 63 12/24/16 20:00 97.6 66 20 167/81 96 12/24/16 16:00 97.3 71 20 164/75 100 I/O 12/24/16 12/24/16 12/24/16 12/25/16 12/25/16 12/25/16 07:00 15:00 23:00 07:00 15:00 23:00 Intake Total 1650 ml 480 ml 1511 ml Balance 1650 ml 480 ml 1511 ml Intake Oral 480 ml 340 ml IV Total 1650 ml 1171 ml # Voids 5 2 Result Diagram: 12/23/16 0400 12/23/16 0400 Objective Remarks GENERAL: This is a well-nourished, well-developed patient, in no apparent distress. SKIN: No rashes, warm and dry HEAD: Atraumatic. Normocephalic. EYES: Pupils equal round and reactive. Extraocular motions intact. No scleral icterus. ENT: Nose without bleeding, or drainage, Airway patent. NECK: Trachea midline. Supple CARDIOVASCULAR: Regular rate and rhythm without murmurs, gallops, or rubs. RESPIRATORY: Fair air entry bilaterally. No wheezes, rales, or rhonchi. GASTROINTESTINAL: Abdomen soft, non-tender, nondistended. Positive bowel sounds MUSCULOSKELETAL: Left foot in gauze, right BKA NEUROLOGICAL: Awake and alert. Moves all extremity. Normal speech.no focal neurological deficit A/P Assessment and Plan 12/24:awaiting WBC scan to verify on osteomyelitis, discussed with Dr. Tapia and with ID, will obtain last the culture from Dr. Huff office for better antibiotic guidance, continue iv antibiotic 12/25:Still waiting on deep culture result from podiatry office, D/W ID, WBC scan focal intense uptake in the sole Mrs. Babcock is a 65 y/o female with idiopathic peripheral neuropathy and right BKA who is here for treatment of left foot cellulitis: Left foot cellulitis - - C-reactive protein elevated at 1.10 - ID consult appreciated , d/w with podiatry - left foot MRI - r/o osteomyelitis nonconclusive - antibiotics: Zosyn IV 4.5 gram q8h - linezolid/Zyvox 600 mg q12h IV Hyperglycemia - HgA1C P , BG reading controlled - Accu-Cheks before meals and at bedtime with low-dose NovoLog sliding scale coverage - Hypoglycemia protocol - Monitor trends in blood glucose levels and adjust treatments as needed Hyponatremia - Initial sodium 130 - Normal saline at 100 cc per hour - Recheck BMP in a.m. and follow results - Replace sodium as necessary Hypertension, poorly controlled - Clonidine 0.1 mg by mouth every 6 hours when necessary systolic blood pressure greater than 160 - continue home antihypertensive medications - Follow trends in blood pressure and adjust treatments accordingly Depression, controlled - Continue home sertraline and Pamelor Idiopathic neuropathy - Continue home gabapentin Hypothyroidism - Well-controlled for 30 years - continue home Synthroid DVT prophylaxis - Heparin 5000 units subcutaneous every 8 hours Discharge Planning When cleared by Florinda Espinosa MD Dec 25, 2016 15:00
--- NOTE | 2016-12-25 16:20 | HHI.IDPN ---
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 Patient reports that night prior to admission she noted a wound on middle of plantar aspect of right foot. It was not painful secondary to her idiopathic neuropathy. She saw her farm equipment mechanic apprentice and underwent a I&D of wound. Patient was sent to ED by Dr. Huff, farm equipment mechanic apprentice. She says she hasn't been checking her feet over the past few weeks since she got a new dog and has been too busy. She does not recall any injury or trauma to the area. Denies fever, chills, n/v/d, difficulty breathing, cough, or chest pain/ discomfort. The patient has a history of right BKA due to osteomyelitis. Patient has never been on IV antibiotics using a PICC line. Patient reports being on Bactrim oral in past. ID consulted for evaluation and Mment of possible osteomyelitis of left foot. Overnight events reviewed. No fever No rash No diarrhea Antibiotics Zosyn IV Zyvox IV Lines Line sites with no evidence of infection. Past Medical History Reviewed. Allergies: Coded Allergies: Cephalosporins (Verified Allergy, Severe, Rash, 12/22/16) Vancomycin (Verified Allergy, Severe, Rash, 12/22/16) Objective . Vital Signs Date Time Temp Pulse Resp B/P Pulse Ox O2 Delivery O2 Flow Rate FiO2 12/25/16 12:00 97.9 68 16 173/75 97 12/25/16 08:00 97.5 69 12 153/70 96 12/25/16 04:00 97.8 56 20 133/66 99 12/25/16 00:00 98.2 60 20 165/74 93 160/54 12/24/16 20:18 63 12/24/16 20:00 97.6 66 20 167/81 96 12/24/16 12/24/16 12/25/16 15:00 23:00 07:00 Intake Total 480 ml 1511 ml Balance 480 ml 1511 ml Intake Oral 480 ml 340 ml IV Total 1171 ml # Voids 5 2 . Microbiology Date/Time Procedure Status Source Growth 12/22/16 19:05 Aerobic Blood Culture - Preliminary Resulted Blood Peripheral NO GROWTH IN 3 DAYS 12/22/16 19:05 Anaerobic Blood Culture - Preliminary Resulted Blood Peripheral NO GROWTH IN 3 DAYS 12/22/16 19:15 Aerobic Blood Culture - Preliminary Resulted Blood Peripheral NO GROWTH IN 3 DAYS 12/22/16 19:15 Anaerobic Blood Culture - Preliminary Resulted Blood Peripheral NO GROWTH IN 3 DAYS Imaging Last Impressions Tumor Localization 12/24/16 0000 Signed Impressions: Service Date/Time: Saturday, December 24, 2016 12:23 - CONCLUSION: Intense focal soft tissue uptake responding to be wound on the plantar surface of the foot. Guille Terry MD FACR Foot X-Ray 12/22/16 0000 Signed Impressions: Service Date/Time: Thursday, December 22, 2016 19:28 - CONCLUSION: 1. Degenerative change, deformity and apparent fragmentation in the mid foot region which could indicate a Charcot joint. This also could be secondary to remote trauma and degenerative change. 2. Surgical changes. 3. Diffuse soft tissue prominence. Abdirashid Jimenez MD Physical Exam GENERAL: This is a well-nourished, well-developed patient, in no apparent distress. SKIN: No rashes, ecchymoses or lesions. Cool and dry. HEAD: Atraumatic. Normocephalic. No temporal or scalp tenderness. EYES: Pupils equal round and reactive. Extraocular motions intact. No scleral icterus. No injection or drainage. ENT: Nose without bleeding, purulent drainage or septal hematoma. Throat without erythema, tonsillar hypertrophy or exudate. Uvula midline. Airway patent. NECK: Trachea midline. Supple, nontender, no meningeal signs. CARDIOVASCULAR: RRR. RESPIRATORY: Clear to auscultation. Breath sounds equal bilaterally. No wheezes , rales, or rhonchi. GASTROINTESTINAL: Abdomen soft, non-tender, nondistended. No hepato-splenomegaly , or palpable masses. No guarding. MUSCULOSKELETAL: Left foot in post op dressing. Right leg amputation site with prosthesis. NEUROLOGICAL: Awake and alert. Grossly non focal Psych: cooperative IV line sites with no e.o infection. Assessment & Plan Remarks Left foot osteomyelitis rule out. Left foot abscess s/p I&D at office. Idiopathic Neuropathy. ? Charcot's joint. Hypothyroidism Vanco/Cephalosporin diffuse drug rash. Not sure which of these two medications. Never been on Keflex or oral cephalosporins after that episode. Recs Discontinue IV Zosyn discontinue Zyvox IV WBC scan revealed focal uptake in the soft tissue only no bone infection. Discussed with Dr. Tapia who agrees with this assessment. Okay to try oral antibiotics based on outpatient cultures. Dr. Tapia shared with me the cultures from the clinic which grew normal respiratory clyde. Start Augmentin oral If tolerates this regimen overnight okay to discharge from ID standpoint Recommend infectious disease follow-up Will sign off if any change in clinical condition or unable to tolerate this regimen please call me tomorrow in a.m. Tasha Skaggs MD Dec 25, 2016 16:20
--- NOTE | 2016-12-25 18:44 | PD.POD ---
Subjective Pain score: 0 Remarks Left foot with no new issues Past Med/Surg/Social History Social History Smoking Status: Former Smoker Objective Vital Signs Vital Signs Date Time Temp Pulse Resp B/P Pulse Ox O2 Delivery O2 Flow Rate FiO2 12/25/16 16:00 97.9 62 16 150/78 96 12/25/16 12:00 97.9 68 16 173/75 97 12/25/16 08:00 97.5 69 12 153/70 96 12/25/16 04:00 97.8 56 20 133/66 99 12/25/16 00:00 98.2 60 20 165/74 93 160/54 12/24/16 20:18 63 12/24/16 20:00 97.6 66 20 167/81 96 Coded Allergies: Cephalosporins (Verified Allergy, Severe, Rash, 12/22/16) Vancomycin (Verified Allergy, Severe, Rash, 12/22/16) Medications and IVs Microbiology Date/Time Procedure Status Source Growth 12/22/16 19:05 Aerobic Blood Culture - Preliminary Resulted Blood Peripheral NO GROWTH IN 3 DAYS 12/22/16 19:05 Anaerobic Blood Culture - Preliminary Resulted Blood Peripheral NO GROWTH IN 3 DAYS 12/22/16 19:15 Aerobic Blood Culture - Preliminary Resulted Blood Peripheral NO GROWTH IN 3 DAYS 12/22/16 19:15 Anaerobic Blood Culture - Preliminary Resulted Blood Peripheral NO GROWTH IN 3 DAYS out pt wd cx from Dr Huff's office- many gm + cocci on gram stain, culture shows skin clyde to date Last 72 hours Impressions Tumor Localization 12/24/16 0000 Signed Impressions: Service Date/Time: Saturday, December 24, 2016 12:23 - CONCLUSION: Intense focal soft tissue uptake responding to be wound on the plantar surface of the foot. Guille Terry MD FACR Physical Exam Remarks Left foot with minimal redness no drainage small ulcer 4mm 3mm 2mm no probe deep , stable charcot foot, pedal pulses palpable, sensation decreased below ankle. 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 Clinically appears to be stable and much improved, WBC scan no bone uptake. Ok to DC out on PO ABX, patient understands woundcare, minimal WB of the left foot, Fu with Dr Huff in 1 week. Kvng Tapia DPM Dec 25, 2016 18:44
[2016-12-25] MEDS ORDERED: AUGM875T3 PO (19:09)
[2016-12-25] MEDS: NORTRIPTYLINE HCL 25 MG CAP PO SCH (21:32)
[2016-12-25] MEDS: AMOXICILLIN/CLAVULANATE K 500 MG TAB PO SCH (21:32)
[2016-12-26] VITALS: BP 150/88; PULSE 59; RESP 18; TEMP 98.4; O2SAT 96
[2016-12-26] MEDS: SODIUM CHLOR 0.9% 1000 ML INJ 1,000 ML IV SCH (03:03)
[2016-12-26 04:00] VITALS: BP 162/94; PULSE 62; RESP 18; TEMP 98.1; O2SAT 93
[2016-12-26] MEDS: cloNIDine HCL 0.1 MG TAB PO PRN (05:23)
[2016-12-26] MEDS: LEVOTHYROXINE SODIUM 125 MCG TAB PO SCH (05:24)
[2016-12-26] MEDS: HEPARIN SODIUM - SQ 10,000 UNITS/ML VIAL SQ SCH (05:24)
[2016-12-26] MEDS: INSULIN ASPART SUPPLEMENTAL SCALE SQ SCH ×2 (05:25→11:00)
[2016-12-26] MEDS: GABAPENTIN 300 MG CAP PO SCH (09:44)
[2016-12-26] MEDS: LISINOPRIL 20 MG TAB PO SCH (09:44)
[2016-12-26] MEDS: AMOXICILLIN/CLAVULANATE K 500 MG TAB PO SCH (09:44)
[2016-12-26] MEDS: DOCUSATE SODIUM 50 MG/SENNA 8.6 MG TAB PO SCH (09:45)
[2016-12-26] MEDS: SERTRALINE HCL 100 MG TAB PO SCH (09:45)
[2016-12-26] MEDS: SODIUM CHLORIDE 0.9% FLUSH 10 ML FLUSH IV FLUSH SCH (09:46)
--- NOTE | 2016-12-26 17:58 | HHI.DS ---
Discharge Summary Admission Date Dec 22, 2016 at 20:02 Discharge Date: Dec 26, 2016 Admitting Diagnosis Left foot cellulitis (1) Foot infection ICD Code: L08.9 (2) Foot abscess, left ICD Code: L02.612 Procedures See below Brief History - From Admission Written by Nikki Cho, acting as scribe for Dr. Conde on 12/22/16 at 20: 07. Mrs. Babcock is reporting that last night, she noted a wound on middle of plantar aspect of right foot - it is not painful as she has idiopathic neuropathy - she saw her personnel counselor today and is s/p I&D of wound - sent to ED by Dr. Huff, personnel counselor. She says she hasn't been checking her feet over the past few weeks since she got a new dog and has been too busy. She does not recall any injury or trauma to the area. Denies fever, chills, n/v/d, difficulty breathing, cough, or chest pain/ discomfort. The patient has a history of right BKA due to osteomyelitis. CBC/BMP: 12/23/16 0400 12/23/16 0400 PE at Discharge GENERAL: This is a well-nourished, well-developed patient, in no apparent distress. SKIN: No rashes, warm and dry HEAD: Atraumatic. Normocephalic. EYES: Pupils equal round and reactive. Extraocular motions intact. No scleral icterus. ENT: Nose without bleeding, or drainage, Airway patent. NECK: Trachea midline. Supple CARDIOVASCULAR: Regular rate and rhythm without murmurs, gallops, or rubs. RESPIRATORY: Fair air entry bilaterally. No wheezes, rales, or rhonchi. GASTROINTESTINAL: Abdomen soft, non-tender, nondistended. Positive bowel sounds MUSCULOSKELETAL: Left foot in gauze, right BKA NEUROLOGICAL: Awake and alert. Moves all extremity. Normal speech.no focal neurological deficit Hospital Course Mrs. Babcock is a 65 y/o female with idiopathic peripheral neuropathy and right BKA who is here for treatment of left foot abscess status post I&D at Dr. Huff office ID consult appreciated as well as podiatry , left foot MRI - r/o osteomyelitis nonconclusive Vanco/Cephalosporin diffuse drug rash. Not sure which of these two medications. Never been on Keflex or oral cephalosporins after that episode. Patient was on Zosyn IV 4.5 gram q8h - linezolid/Zyvox 600 mg q12h IV, ID followed up, obtain previous deep culture from Dr. Huff office, discussed with podiatry and ID on multiple occasion, WBC scan has been done showing only uptake in the soft tissue, ID and podiatry decided on oral antibiotic and discharge home to follow up as an outpatient with Dr. Ratliff and podiatry Patient had Hypertension, poorly controlled Clonidine 0.1 mg by mouth every 6 hours when necessary systolic blood pressure greater than 160, continue home antihypertensive medications [id number] encounter performed with the patient on discharge day, as well as physical exam, summary of hospitalization course and postdischarge plan has been D/W the patient. D/W nurse D/W counseling case manager. Discharge medications reviewed and printed and signed, post discharge follow up visit with PCP and other specialist as well as Brief hospital course and discharge summary has been placed. Pt Condition on Discharge: Fair Discharge Disposition: Discharge Home Discharge Time: > 30 minutes Discharge Instructions DIET: Follow Instructions for: Heart Healthy Diet, Diabetic Diet Activities you can perform: See Additionl Instruction Other Activity Instructions: as per podiatry recommendation Follow up Referrals: Infectious Disease - 2 Weeks with Kasey Ratliff MD New Medications: Amoxicillin-Clavulanate (Augmentin) 875-125 Mg Tab 1 TAB PO BID Foot abscess Days 14 Ref 0 TAB Continued Medications: Alpha Lipoic Acid (Alpha Lipoic Acid) 600 Mg Cap 600 MG PO BID Nutritional Supplement Ref 0 CAP Aspirin (Aspirin) 81 Mg Chew 81 MG CHEW DAILY Ref 0 TAB Buprenorphine-Naloxone Sublingual Film (Suboxone Sublingual Film) 8-2 Mg Film 1 FILM SL Unique ID number required: FILM Gabapentin (Neurontin) 600 Mg Tab 600 MG PO QID #90 Ref 0 TAB Glucosa Sierra 2Kcl/Chondroitin Sierra (Glucosamine & Chondroitin Cap) 1 Each Capsule 600 TAB PO BID Levothyroxine (Synthroid) 125 Mcg Tab 125 MCG PO DAILY Thyroid #30 Ref 0 TAB Lisinopril (Lisinopril) 40 Mg Tab 40 MG PO DAILY Blood Pressure Management #30 Ref 0 TAB Multivitamin (Once Daily) 1 Each Tablet Nortriptyline (Pamelor) 75 Mg Cap 75 MG PO HS Depression Control #30 Ref 0 CAP Potassium Chloride Microencaps (Klor-Con M20) 20 Meq Tab 20 MEQ PO DAILY Electrolyte Replacement #30 Ref 0 TAB Sertraline (Zoloft) 100 Mg Tab 100 MG PO DAILY #30 Ref 0 TAB Florinda Atkins MD Dec 26, 2016 17:58
== END 2016-12-26 12:33 | disposition home or self-care (01) | DRG 603 ==
LOC: NEPC 18:07 → NEDA 20:02 → N04A 22:18
PROVIDERS: ADMIT Hospitalist; ATTEND Hospitalist
DX: L02.612 Cutaneous abscess of left foot (principal); E87.1 Hypo-osmolality and hyponatremia; I10 Essential (primary) hypertension; L03.116 Cellulitis of left lower limb; G60.9 Hereditary and idiopathic neuropathy, unspecified; E03.9 Hypothyroidism, unspecified; R73.9 Hyperglycemia, unspecified; F32.9 Major depressive disorder, single episode, unspecified; Z89.511 Acquired absence of right leg below knee; Z79.82 Long term (current) use of aspirin; Z87.891 Personal history of nicotine dependence
CPT/HCPCS: 73630; 78807; 78999; 80048; 80053; 82948; 83036; 83735; 85025; 85610; 85730; 86140; 87040; A9569; J1644; J2020; J2543; J7030